=== PATIENT | male | born 1970 | race Caucasian/White ===

== ENCOUNTER 2017-02-16 22:50 | Emergency (ER) | payer MEDICAID, OTHER ==
[~2017-02-16] VITALS: Ht 170.2 cm; Wt 79.2 kg
[2017-02-16 23:16] VITALS: Ht 170.2 cm; Wt 79.2 kg
[2017-02-17] MEDS ORDERED: HYDROCODONE/APAP (10/325) TAB PO ONE (01:00)
--- NOTE | 2017-02-17 01:12 | RADRPT ---
PROCEDURE: Left wrist x-ray CLINICAL INDICATION: Trauma. TECHNIQUE: AP, lateral, and oblique views of the left wrist. COMPARISON: None. FINDINGS: A severely comminuted intra-articular fracture of the distal radial metaphysis with dorsal displacem ent and angulation and marked periarticular soft tissue swelling. The carpal bones appear grossly in tact. If there is concern for a scaphoid fracture, and navicular view may be considered. The bones are normal mineralization without cortical destruction. The carpal bones are normally aligned and joint space is well-maintained. The remaining visualized bones of the hand are unremarkable. No soft tissue abnormality. IMPRESSION: 1. Comminuted intra-articular distal metaphyseal fracture of the radius. 2. Marked soft tissue deformity of the wrist. The carpal bones are grossly intact. RPTAT:AAJJ Physician Heather Date Time Electronically viewed and signed by Physician Heather on 02/17/2017 01:11 [email or web address]/
--- NOTE | 2017-02-17 01:12 | RADRPT ---
PROCEDURE: X-ray left wrist CLINICAL INDICATION: Injury to the left wrist TECHNIQUE: 3 views left wrist COMPARISON: None FINDINGS: Impacted fracture of the distal radial metaphysis with intra-articular component. Avulsion fracture fragment in the dorsum of the soft tissue there is compatible with a fracture of the triquetrum. The fragment measures up to 2 mm, and is seen only in the lateral projection. Recommend CT examination of the left wrist for further evaluation. IMPRESSION: 1. Comminuted impacted fracture of the distal articular metaphysis of the left radius. 2. Small avulsion fracture fragment in the soft tissues at the dorsum of the wrist compatible with a fracture of the triquetrum. 3. Recommend CT correlation. RPTAT: [facility]U Physician Zeyad Date Time Electronically viewed and signed by Physician Zeyad on 02/17/2017 01:12 RS/
--- NOTE | 2017-02-17 01:27 | ERD ---
ER Documentation Chief Complaint Chief Complaint left hand pain s/p [facility] fall. -KO. +swelling +CMS HPI This 46-year-old male patient presents to emergency department for left wrist injury. Patient reportedly was drinking tried to stand up in his legs buckled, causing him to fall forward onto his left hand and wrist. Injury happened of last night. Patient reports pain, denies numbness and tingling, reports difficulty moving fingers. Thank you for for coming to [facility] for your care today. Please ask your nurse or provider if you have questions about your care today and do not leave until all your questions have been answered. Please use any medications given as directed and follow-up with your doctor (or the doctor you were referred to) in the next 2-3 days. If you do not have a primary care doctor you may follow up at the [facility] [place] (listed below). You may also use motrin and tylenol as needed for fever and/or pain unless instructed otherwise by your provider or nurse. Indications for more urgent follow-up have been discussed, but you may return to the Emergency Department at ANY time for any worrisome or worsening symptoms. This is 46-year-old male patient presents to emergency department for evaluation of left wrist pain. Patient had been drinking alcohol and to stand up, legs gave out falling forward with onto left hand and wrist. Patient has no complaint of loss of sensation, reports pain with movement, and unable to wiggle fingers. ROS All systems reviewed and are negative except as per history of present illness. Medications Home Meds Active Scripts Hydrocodone/Acetaminophen (Eldora 5-325 Tablet) 1 Each Tablet, 1 TAB PO Q6H Y for PAIN LEVEL 6-10, #7 TAB Prov:TOMMY,KIM 02/17/17 Ibuprofen* (Motrin*) 600 Mg Tab, 600 MG PO Q6, #30 TAB Prov:TOMMY,KIM 02/17/17 Allergies Allergies: Coded Allergies: No Known Allergy (Unverified , 02/16/17) PMhx/Soc Medical and Surgical Hx: pt denies Medical Hx, pt denies Surgical Hx Hx Alcohol Use: Yes Hx Substance Use: Yes Hx Tobacco Use: Yes Smoking Status: Never smoker Physical Exam Vitals Vitals stable, triage notes reviewed Physical Exam Const: Well-nourished, well hydrated, well-appearing 46-year-old male patient obvious discomfort, no acute distress Head: Atraumatic Resp: Clear to auscultation bilaterally, No respiratory distress Cardio: Regular rate and rhythm, no murmurs Skin: No petechiae or rashes Hand -left: Skin: No laceration, bony deformity noted on left wrist limited range of motion with dry dirty skin, Compartments: Soft Sensation: Intact shoulder/pinky/middle finger/thumb web space Bones: Radial tenderness, metacarpal tenderness Snuffbox: positive Joints: No effusion Wrist: Flex/Ext: abnormal Uln/Radial deviation: abnormal Pron/Supination abnormal Finger: Flex/Ext: Abnormal Add/abd: abnormal Thumb Thumbs up: Normal Neur: Awake and alert Psych: Normal Mood and Affect Results 24 hrs Current Medications Medications (Trade) Dose Ordered Sig/Shasha Route PRN Reason Start Time Stop Time Status Last Admin Dose Admin Acetaminophen/ Hydrocodone Bitart (Eldora (10/325)) 2 tab ONCE ONCE PO 02/17/17 01:00 02/17/17 01:01 DC 02/17/17 01:14 Procedures/MDM PROCEDURE: X-ray left wrist CLINICAL INDICATION: Injury to the left wrist TECHNIQUE: 3 views left wrist COMPARISON: None FINDINGS: Impacted fracture of the distal radial metaphysis with intra-articular component. Avulsion fracture fragment in the dorsum of the soft tissue there is compatible with a fracture of the triquetrum. The fragment measures up to 2 mm, and is seen only in the lateral projection. Recommend CT examination of the left wrist for further evaluation. IMPRESSION: 1. Comminuted impacted fracture of the distal articular metaphysis of the left radius. 2. Small avulsion fracture fragment in the soft tissues at the dorsum of the wrist compatible with a fracture of the triquetrum. 3. Recommend CT correlation. RPTAT: [facility] Physician Zeyad Date Time Electronically viewed and signed by Physician Zeyad on 02/17/2017 01:12 PROCEDURE: Left wrist x-ray CLINICAL INDICATION: Trauma. TECHNIQUE: AP, lateral, and oblique views of the left wrist. COMPARISON: None. FINDINGS: A severely comminuted intra-articular fracture of the distal radial metaphysis with dorsal displacement and angulation and marked periarticular soft tissue swelling. The carpal bones appear grossly intact. If there is concern for a scaphoid fracture, and navicular view may be considered. The bones are normal mineralization without cortical destruction. The carpal bones are normally aligned and joint space is well-maintained. The remaining visualized bones of the hand are unremarkable. No soft tissue abnormality. IMPRESSION: 1. Comminuted intra-articular distal metaphyseal fracture of the radius. 2. Marked soft tissue deformity of the wrist. The carpal bones are grossly intact. RPTAT:AAJJ Physician Heather Date Time Electronically viewed and signed by Physician Heather on 02/17/2017 01:11 This 46-year-old male patient presents to emergency department for evaluation of left wrist injury, injury happened yesterday, reports was drinking went to stand up in his legs gave out from underneath him causing him to fall forward. Patient reached his hand out and fell onto his wrist. Patient reports pain, limited range of motion of fingers, and difficulty using his hand. Emergency room course includes history and physical exam, with obvious bony deformity when compared to right hand, decreased range of motion unable to flex or extend , pain with supination and subluxation. Patient is not actively moving fingers or thumb freely, radiographic imaging and pain control, radiologist's finding document a communicated intra-articular distal metaphyseal sole fracture of the radius, marked soft tissue deformity of the wrists, the carpal bones are grossly intact. Patient is placed in a ulnar gutter and sugar tong, Splint Assessment: Neurovascularly intact post splint placement with good fit. Patient discharged to follow-up at [facility] for orthopedic evaluation. Stressed the importance of follow-up, patient was told with lean facilitator and Wolof that if he did not follow-up it could mean severe change in his use of his left hand. Patient verbalizes understanding and agrees with plan of care. Patient is stable with no new complaints during ER course, clinically there is no current evidence to suggest nipple clear or scaphoid fracture, lunate or perilunate dislocation. Ligament injury, flexor tendon injury, vascular injury or any other emergent condition appearing to require further evaluation or hospitalization. I feel the patient is stable for discharge at this time. I have discussed results, examination findings, the treatment plan with the patient and family present prior to discharge. Indications for emergent reevaluation, side effects of medication were also discussed. All questions were answered. Patient verbalizes understanding and agrees with plan of care. Departure Diagnosis: Primary Impression: Distal radius fracture, left Encounter type: initial encounter Fracture type: closed Fracture morphology : other intra-articular Qualified Code: S52.572A - Other closed intra- articular fracture of distal end of left radius, initial encounter Condition: Good Patient Instructions: Fracture, Wrist [General] Additional Instructions: Thank you for for coming to [facility] for your care today. Please ask your nurse or provider if you have questions about your care today and do not leave until all your questions have been answered. Please use any medications given as directed and follow-up with your doctor (or the doctor you were referred to) in the next 2-3 days. If you do not have a primary care doctor you may follow up at the [facility] [place] (listed below). You may also use motrin and tylenol as needed for fever and/or pain unless instructed otherwise by your provider or nurse. Indications for more urgent follow-up have been discussed, but you may return to the Emergency Department at ANY time for any worrisome or worsening symptoms. If you have abdominal pain, please know that no test or exam you received is perfect and you should follow up within 8 hours for continued pain. If you had any imaging studies today, such as an X-Ray or CT Scan, these studies will be reviewed later by a radiologist. You will be called if there are important findings that were not identified today, so make sure the contact information you provided at registration is correct. If you received any narcotic pain control medicine today, such as Vicodin, Morphine or Dilaudid, your coordination and judgment may be affected for a number of hours. Please do not drive or operate heavy machinery, and you may want someone to assist you at home. If you were given a prescription for narcotic medication, be aware that it is very addictive- use sparingly and only if necessary. KIM SANDERS Feb 17, 2017 01:27
[2017-02-17] MEDS ORDERED: IBUP-1542 PO (03:40)
[2017-02-17] MEDS ORDERED: HYDR-906 PO (03:41)
[2017-02-17 04:11] VITALS: BP 138/90; PULSE 60; RESP 20; TEMP 98.2
== END 2017-02-17 04:13 | disposition home or self-care (01) ==
LOC: FTE 22:50
DX: S52.572A Other intraarticular fracture of lower end of left radius, initial encounter for closed fracture (principal); W18.39XA Other fall on same level, initial encounter; Y92.9 Unspecified place or not applicable; Z87.891 Personal history of nicotine dependence
CPT/HCPCS: 29125; 73110; 73130; Z7610